=== PATIENT | male | born 1980 | race African-American/Black ===

== ENCOUNTER 2020-11-27 11:00 | Outpatient (RCR) | payer OTHER, SELFPAY ==
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
--- NOTE | 2020-10-25 08:08 | PCPTNOTE ---
Patient did not show up for scheduled appointment this date; voicemail left for reminder call for next appointment October 31 @11am.
--- NOTE | 2020-11-09 09:00 | PCPTNOTE ---
Patient no showed to appointment this date. Patient states he forgot his appointment this morning. Confirmed upcoming appointment this patient being 11/13 at 17:00.
--- NOTE | 2020-11-15 11:22 | PCPTNOTE ---
Patient did not show up for scheduled appointment this date. Called and spoke to patient he stated he forgot.
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
== END 2021-01-08 13:05 | disposition home or self-care (01) ==
LOC: ANHPT 11:00
DX: S72.321D Displaced transverse fracture of shaft of right femur, subsequent encounter for closed fracture with routine healing (principal)
CPT/HCPCS: 97110; 97140; 97161

== ENCOUNTER 2020-12-09 14:08 | Emergency (ER) | payer OTHER, SELFPAY ==
[2020-12-09 14:26] VITALS: BP 133/79; PULSE 61; RESP 16; TEMP 36.5; O2SAT 98
--- NOTE | 2020-12-09 14:34 | PC.NURSE ---
requested to go get drink from car.
--- NOTE | 2020-12-09 15:12 | ED.WOUNDLAC ---
HPI - Wound/Laceration General Chief Complaint: Wound/Laceration Stated Complaint: eye pain Time Seen by Provider: 12/09/20 15:10 Source: patient Mode of arrival: ambulatory Limitations: no limitations History of Present Illness HPI narrative: Avtar Muñiz is a 40 yo male with a PMH of retinal detachment, fever blisters under eye, who comes here for recurrence of fever blisters under eye and tearing of left eye -started 2 days ago but today it was much more swollen and tender; has had care from other doctor in past but is fuzzy on details of care Related Data Allergies Allergy/AdvReac Type Severity Reaction Status Date / Time No Known Allergies Allergy Unverified 10/05/18 08:37 Review of Systems Review of Systems: CONSTITUTIONAL: Denies fever, chills, sweats. EYES: Denies visual changes, redness, has left eye discharge. Tearing, swelling with blistery looking lesion under left eye ENT: Denies rhinorrhea, congestion, sore throat, otalgia. CARDIOVASCULAR: Denies chest pain, palpitations, edema. RESPIRATORY: Denies dyspnea, wheezing, cough GASTROINTESTINAL: Denies abdominal pain, nausea, vomiting, diarrhea. GENITOURINARY: Denies dysuria, hematuria, abnormal discharge SKIN: Denies rash or itching. NEUROLOGIC: Denies numbness, or focal weakness. PSYCHIATRIC: Denies anxiety or depression. 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 There is no relevant family history pertinent to the presenting complaint. Exam Narrative: GENERAL: This is a well-nourished, well-developed patient, in moderate distress. HEAD: normocephalic, atraumatic. EYES: PERR on R; unable to assess left eye with impaired retina. sclera injected on left. Vision is grossly intact. Area swollen and blistered under left eye EARS: External ears normal, Hearing grossly intact. NOSE: External nose normal without nasal discharge, nares without redness, no rhinorrhea. THROAT: Mucous membranes moist, NECK: Neck supple, non-tender CARDIOVASCULAR: Regular rate and rhythm without murmurs, gallops, or rubs. RESPIRATORY: Clear to auscultation. Breath sounds equal bilaterally. No wheezes, rales, or rhonchi. GASTROINTESTINAL: Abdomen soft, SKIN: warm, intact with no suspicious lesions or rash, good texture and turgor. NEURO: awake, alert, and oriented to person, place and time. There were no obvious focal neurologic abnormalities. Steady gait EXTREMITIES: Normal range of motion. BACK: Nontender without deformity Course Course Emergency Course: Patient here for tearing of left eye and increased swelling and pain; history of HSV left eye area and has used ointment in past Started on acyclovir ointment to area below eye and antibiotic drop to left eye- cautioned to go to ER if worsened before can see pcp Follow-up with PCP Vital Signs Vital signs: Vital Signs Temperature 97.7 F 12/09/20 14:26 Pulse Rate 61 12/09/20 14:26 Respiratory Rate 16 12/09/20 14:26 Blood Pressure 133/79 12/09/20 14:26 Pulse Oximetry 98 12/09/20 14:26 Temperature 97.7 F 12/09/20 14:26 Pulse Rate 61 12/09/20 14:26 Respiratory Rate 16 12/09/20 14:26 Blood Pressure 133/79 12/09/20 14:26 Pulse Oximetry 98 12/09/20 14:26 MDM - Wound/Laceration Differential Diagnosis Differential diagnosis: Likely other (HSV versus bacterial conjunctivitis versus viral conju
== END 2020-12-09 15:48 | disposition home or self-care (01) ==
PROVIDERS: Emergency Provider Nurse Practitioner
DX: B00.9 Herpesviral infection, unspecified (principal)
CPT/HCPCS: 99213; G0463